=== PATIENT | male | born 1975 | race Caucasian/White ===

== ENCOUNTER 2023-07-24 15:41 | Emergency (ER) | payer OTHER, SELFPAY ==
--- NOTE | ~2023-07-24 | XR_ITS ---
AP and oblique views of the left ribs Clinical History: Pain Findings: No rib fracture is seen. Osseous alignment is anatomic. Lungs are clear, without focal cons olidation or pleural effusion. Cardiomediastinal contour is within normal limits. Soft tissues are un remarkable. Impression: No rib fracture is seen. Reviewed, dictated and finalized at [facility]. Impression: No rib fracture is seen.
--- NOTE | 2023-07-24 15:44 | ED.BACK ---
HPI - Back Pain/Injury General Chief Complaint: Back Pain/Injury Stated Complaint: Back pain Source: patient and RN notes reviewed Mode of arrival: ambulatory Limitations: no limitations History of Present Illness HPI Narrative: Patient is a 48-year-old male who presents to the [facility] with complaints of left posterior rib pain. Patient states that he had a fall approximately 2 weeks ago. Patient states that he stepped off a step into a pit, falling approximately 5 ft. Patient states that he hit his left posterior ribs on the corner of a step. He denies hitting head or loss of consciousness during the fall. Denies neck pain. He reports constant aching to his left posterior ribs with intermittent sharp pains that occur with movement and positioning. He denies difficulty breathing or shortness of breath. He does not appear in acute distress. Related Data Home Medications Medication Instructions Recorded Confirmed pantoprazole 40 mg tablet,delayed 40 mg PO DAILY 07/24/23 07/24/23 release Allergies Allergy/AdvReac Type Severity Reaction Status Date / Time No Known Allergies Allergy Verified 07/24/23 16:00 Review of Systems Review of Systems: CONSTITUTIONAL: Denies fever, chills, or sweats. EYES: Denies visual changes, redness, or discharge. ENT: Denies otalgia and sore throat CARDIOVASCULAR: Denies chest pain, palpitations, or edema. RESPIRATORY: Denies cough or dyspnea. GASTROINTESTINAL: Denies abdominal pain, nausea, vomiting, or diarrhea. GENITOURINARY: Denies dysuria or hematuria. SKIN: Denies rash or itching. MUSCULOSKELETAL: Denies myalgia. Reports left posterior rib pain. NEUROLOGIC: Denies headache, numbness, or weakness. Pertinent positives per HPI. PMFSH Comments At the time of my signature, I reviewed and agree with the nursing past medical, surgical, social, and family history. There is no relevant family history pertinent to the patient complaint. Exam Narrative: GENERAL: This is a well-nourished, well-developed patient, in no apparent distress. HEAD: normocephalic, atraumatic. EYES: PERRL. Sclera clear/white. Vision is grossly intact. EARS: External ears normal, auditory canals clear and without drainage, TMs normal without perforation. Hearing grossly intact. NOSE: External nose normal with no obvious nasal discharge, nares without redness, no rhinorrhea. THROAT: Mucous membranes moist, posterior pharynx clear. NECK: Neck supple, non-tender without lymphadenopathy, masses or thyromegaly. CARDIOVASCULAR: Regular rate and rhythm without murmurs, gallops, or rubs. RESPIRATORY: Clear to auscultation. Breath sounds equal bilaterally. No wheezes, rales, or rhonchi. GASTROINTESTINAL: Abdomen soft, non-tender, nondistended. Bowel sounds are active. No hepato-splenomegaly, or palpable masses. No guarding. SKIN: warm, intact with no suspicious lesions or rash, good texture and turgor. NEURO: awake, alert, and oriented to person, place and time. There were no obvious focal neurologic abnormalities. EXTREMITIES: No clubbing, cyanosis, or edema. No joint tenderness, effusion, or edema noted. BACK: Left posterior rib tenderness. Course Course Level of Care: Express Care Visit Vital Signs Vital signs: Vital Signs Temperature 98.2 F 07/24/23 15:49 Pulse Rate 71 07/24/23 15:49 Respiratory Rate 16 07/24/23 15:49 Blood Pressure 128/82 07/24/23 15:49 Pulse Oximetry 98 07/24/23 15:49 Temperature 98.2 F 07/24/23 15:49 Pulse Rate 71 07/24/23 15:49 Respiratory Rate 16 07/24/23 15:49 Blood Pressure 128/82 07/24/23 15:49 Pulse Oximetry 98 07/24/23 15:49 Reviewed MDM - Back Pain/Injury MDM Narrative Medical decision making narrative: Use the RICE method at home. May take ibuprofen and/or Tylenol if needed. If symptoms persist in 1 week after conservative treatment, follow-up with specialist. Differential Diagnosis Differential diagnosis: Likely lumbar
[2023-07-24 15:49] VITALS: BP 128/82; PULSE 71; RESP 16; TEMP 36.8; O2SAT 98
== END 2023-07-24 16:20 | disposition home or self-care (01) ==
PROVIDERS: Emergency Provider Nurse Practitioner; PCP Family Medicine
DX: S20.212A Contusion of left front wall of thorax, initial encounter (principal); W17.89XA Other fall from one level to another, initial encounter
CPT/HCPCS: 71101; 99213; G0463

== ENCOUNTER 2025-08-04 15:36 | Outpatient (CLI) | payer BC, SELFPAY ==
--- NOTE | ~2025-08-04 | CT_ITS ---
EXAMINATION: CT sinus wo con COMPARISON: None HISTORY: Chronic sinusitis, unspecified TECHNIQUE: Axial images were obtained without IV contrast. Sagittal, coronal reconstruction images were obtained from the axial views. CT scan performed using dose optimization techniques including the following automated exposure control; adjustment of mA and/or kV; use of iterative reconstruction technique. Automatic exposure control was used to reduce radiation dose. Permanent radiation dose record is archived to PACS. FINDINGS: Visualized brain parenchyma, optic globes and soft tissues appear unremarkable Left frontal sinus is diminutive. Minimal mucosal thickening in the ethmoidal air cells. Minimal mucosal thickening in the maxillary and sphenoid sinuses. No osseous destruction or wall thickening. The ostiomeatal complexes are patent The nasal septum is deviated to the right with thickening of the turbinates on the right side with mild narrowing of the right nasal cavity. IMPRESSION: Minimal sinusitis Reviewed, dictated and finalized at location [facility]. IMPRESSION: Minimal sinusitis
== END 2025-08-04 15:37 | disposition home or self-care (01) ==
LOC: MICIMG 15:38
PROVIDERS: PCP Otolaryngology; Visit Provider Otolaryngology
DX: J32.9 Chronic sinusitis, unspecified (principal)
CPT/HCPCS: 70486